=== PATIENT | female | born 1930 | race Caucasian/White ===

== ENCOUNTER → 2016-04-17 | Outpatient (CLI) | payer MEDICARE, BC | LOC: MC.RAD 04-10 10:40 | DX: Z12.31 Encounter for screening mammogram for malignant neoplasm of breast (principal); Z80.3 Family history of malignant neoplasm of breast ==

== ENCOUNTER → 2017-04-18 | Outpatient (CLI) | payer MEDICARE, BC | LOC: MC.RAD 09:47 | DX: Z12.31 Encounter for screening mammogram for malignant neoplasm of breast (principal) ==

== ENCOUNTER → 2018-04-21 | Outpatient (CLI) | payer MEDICARE, BC | LOC: MC.RAD 09:20 | DX: Z12.31 Encounter for screening mammogram for malignant neoplasm of breast (principal) ==

== ENCOUNTER → 2019-05-04 | Outpatient (CLI) | payer MEDICARE, BC | LOC: COL.RAD 09:42 | DX: K57.30 Diverticulosis of large intestine without perforation or abscess without bleeding (principal); R19.00 Intra-abdominal and pelvic swelling, mass and lump, unspecified site; Z90.710 Acquired absence of both cervix and uterus; R91.8 Other nonspecific abnormal finding of lung field | CPT/HCPCS: Q9967 ==

== ENCOUNTER → 2019-05-07 | Outpatient (CLI) | payer MEDICARE, BC | LOC: MC.RAD 14:07 | DX: Z12.31 Encounter for screening mammogram for malignant neoplasm of breast (principal) ==

== ENCOUNTER → 2020-05-25 | Outpatient (CLI) | payer MEDICARE, BC | LOC: MC.RAD 05-10 09:30 | DX: Z12.31 Encounter for screening mammogram for malignant neoplasm of breast (principal) ==